=== PATIENT | female | born 1980 | race Caucasian/White ===

== ENCOUNTER 2019-06-21 01:39 | Emergency (ER) | payer MEDICARE, OTHER ==
[~2019-06-21] VITALS: Ht 165.1 cm; Wt 73.9 kg
--- NOTE | 2019-06-21 01:40 | NUR ---
PER VERBAL MD ORDER, WILL ADMINISTER ATIVAN 2MG IM X1 NOW
--- NOTE | 2019-06-21 01:42 | NUR ---
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 PT TAKEN TO BED 8, PUT ON THE MONITOR AND PULSE OX.
--- NOTE | 2019-06-21 01:43 | NUR ---
PT STILL ALTERED, NOT SEIZING. PT STATES SHE TOOK A LYFT TO THE HOSPITAL BECAUSE SHE WAS NOT FEELING WELL.
[2019-06-21] MEDS ORDERED: LORAZEPAM INJ 2 MG/ML VIAL IM ONE (02:00)
--- NOTE | 2019-06-21 02:06 | NUR ---
PT RESTING IN BED WITH SEIZURE PRECAUTIONS, NAD NOTED WILL CONTINUE TO MONITOR.
[2019-06-21] MEDS ORDERED: LORAZEPAM INJ 2 MG/ML VIAL ONE (02:22)
--- NOTE | 2019-06-21 03:07 | NUR ---
Patient is resting comfortably in bed with eyes closed. Easily aroused. VSS
[2019-06-21] MEDS ORDERED: ACETAMINOPHEN 325 MG TABLET ONE (03:17)
--- NOTE | 2019-06-21 03:24 | NUR ---
Patient discharged to home in stable condition. Written and verbal after care instructions given. Patient verbalizes understanding of instruction.
[2019-06-21 03:25] VITALS: BP 121/87
[2019-06-21] MEDS ORDERED: ACETAMINOPHEN 325 MG TABLET PO ONE (03:30)
== END 2019-06-21 03:25 | disposition home or self-care (01) ==
LOC: ER 01:40 → EDBD 01:40 → ER 03:25
DX: R56.9 Unspecified convulsions (principal); R51 Headache
CPT/HCPCS: 96372; 99283; J2060